=== PATIENT | male | born 1965 | race Caucasian/White ===

== ENCOUNTER → 2017-06-21 | Outpatient (CLI) | payer MEDICAID | END | disposition home or self-care (01) | LOC: RAD 11:36 | DX: M75.91 Shoulder lesion, unspecified, right shoulder (principal) ==

== ENCOUNTER → 2017-07-20 | Outpatient (CLI) | payer OTHER ==
[2017-07-20 09:15] LABS: BASO # 0.1 10*3/uL (0.0-0.1); BASO % 0.6 % (0.0-1.0); EOS # 0.2 10*3/uL (0.0-0.4); EOS % 1.8 % (1.0-4.0); HEMATOCRIT 49.9 % (42.0-52.0); HEMOGLOBIN 16.4 g/dl (14.0-18.0); LYMPH # 1.5 10*3/uL (1.3-4.4); LYMPH % 18.8 % (27.0-41.0); MEAN CELL VOLUME 98.2 fl (80.0-94.0); MEAN CORPUSCULAR HGB 32.3 pg (27.0-31.0); MEAN CORPUSCULAR HGB CONC 32.9 g/dl (33.0-37.0); MEAN PLATELET VOLUME 8.7 fl (9.6-12.3); MONO # 0.9 10*3/uL (0.1-1.0); NEUT # 5.5 10*3/uL (2.3-7.9); NEUT % 67.4 % (47.0-73.0); PLATELET COUNT AUTOMATED 199 10*3/uL (130-400); RED BLOOD COUNT 5.08 10*6/uL (4.50-5.90); RED CELL DISTRI WIDTH 14.6 % (0-14.5); WHITE BLOOD COUNT 8.1 10*3/uL (4.8-10.8)
[2017-07-20 09:34] LABS: ALBUMIN 3.6 gm/dl (3.1-4.5); BUN 30 mg/dl (7-24); CHLORIDE 106 mmol/L (98-107); CHOLESTEROL 250 mg/dL (<200); CREATININE 1.13 mg/dL (0.70-1.30); POTASSIUM 4.3 mmol/L (3.5-5.1); SGOT/AST 40 IU/L (3-35); SGPT/ALT 35 U/L (12-78); SODIUM 140 mmol/L (136-145); TOTAL PROTEIN 8.2 gm/dL (6.4-8.2); TRIGLYCERIDES 134 mg/dl (<150); VLDL CHOLESTEROL 27 mg/dL (6-40)
[2017-07-20 09:40] LABS: ALKALINE PHOSPHATASE 110 U/L (45-117); FREE T4 0.95 ng/dl (0.76-1.46); HDL CHOLESTEROL 59 mg/dl (40-60); LDL CHOLESTEROL 164 mg/dL (9-159)
[2017-07-20 10:49] LABS: VITAMIN D, 25-HYDROXY 11.1 ng/mL (30-100)
[2017-07-21 08:11] LABS: PROSTATE SPECIFIC AG FREE 0.15 ng/mL; PROSTATE SPECIFIC AG, SERUM 0.7 ng/mL (0.0-4.0)
== END | disposition home or self-care (01) ==
LOC: LAB 08:50
PROVIDERS: Internal Medicine
DX: Z12.5 Encounter for screening for malignant neoplasm of prostate (principal); Z11.59 Encounter for screening for other viral diseases; I10 Essential (primary) hypertension

== ENCOUNTER 2017-10-11 01:21 | Inpatient (IN) | payer SELFPAY ==
[~2017-10-11] VITALS: Ht 180.3 cm; Wt 87.6 kg
[2017-10-11 01:33] LABS: BASO # 0.1 10*3/uL (0.0-0.1); BASO % 0.8 % (0.0-1.0); EOS # 0.1 10*3/uL (0.0-0.4); HEMATOCRIT 52.8 % (42.0-52.0); HEMOGLOBIN 17.4 g/dl (14.0-18.0); LYMPH # 2.4 10*3/uL (1.3-4.4); LYMPH % 37.7 % (27.0-41.0); MEAN CELL VOLUME 96.2 fl (80.0-94.0); MEAN CORPUSCULAR HGB 31.7 pg (27.0-31.0); MEAN PLATELET VOLUME 8.5 fl (9.6-12.3); MONO # 0.8 10*3/uL (0.1-1.0); MONO % 12.1 % (3.0-9.0); NEUT % 47.1 % (47.0-73.0); PLATELET COUNT AUTOMATED 129 10*3/uL (130-400); RED BLOOD COUNT 5.49 10*6/uL (4.50-5.90); RED CELL DISTRI WIDTH 13.1 % (0-14.5); WHITE BLOOD COUNT 6.4 10*3/uL (4.8-10.8)
[2017-10-11 01:39] VITALS: BP 169/109
[2017-10-11 01:43] LABS: ACT PARTIAL THROMBO TIME 26.3 SECONDS (20.8-31.5)
[2017-10-11 01:51] LABS: ALBUMIN 3.7 gm/dl (3.1-4.5); ALKALINE PHOSPHATASE 126 U/L (45-117); BUN 6 mg/dl (7-24); CHLORIDE 100 mmol/L (98-107); POTASSIUM 3.6 mmol/L (3.5-5.1); SGOT/AST 48 IU/L (3-35); SGPT/ALT 53 U/L (12-78); SODIUM 140 mmol/L (136-145); TOTAL PROTEIN 8.4 gm/dL (6.4-8.2)
[2017-10-11 01:52] LABS: TROPONIN I < 0.015 ng/ml (<0.045)
[2017-10-11 02:50] VITALS: BP 148/95
[2017-10-11] MEDS ORDERED: LIPITOR10 MG PO ×2 (02:56→13:49)
[2017-10-11 04:41] LABS: BASO % 0.8 % (0.0-1.0); EOS # 0.1 10*3/uL (0.0-0.4); EOS % 2.7 % (1.0-4.0); HEMATOCRIT 46.8 % (42.0-52.0); HEMOGLOBIN 15.7 g/dl (14.0-18.0); LYMPH # 1.7 10*3/uL (1.3-4.4); LYMPH % 33.3 % (27.0-41.0); MEAN CELL VOLUME 95.5 fl (80.0-94.0); MEAN CORPUSCULAR HGB CONC 33.5 g/dl (33.0-37.0); MEAN PLATELET VOLUME 8.6 fl (9.6-12.3); MONO # 0.6 10*3/uL (0.1-1.0); NEUT # 2.7 10*3/uL (2.3-7.9); NEUT % 51.8 % (47.0-73.0); PLATELET COUNT AUTOMATED 120 10*3/uL (130-400); RED CELL DISTRI WIDTH 13.1 % (0-14.5); WHITE BLOOD COUNT 5.2 10*3/uL (4.8-10.8)
[2017-10-11 04:58] LABS: ALBUMIN 3.1 gm/dl (3.1-4.5); ALKALINE PHOSPHATASE 102 U/L (45-117); BUN 6 mg/dl (7-24); CHLORIDE 102 mmol/L (98-107); CHOLESTEROL 201 mg/dL (<200); CREATININE 0.95 mg/dL (0.70-1.30); HDL CHOLESTEROL 49 mg/dl (40-60); LDL CHOLESTEROL 89 mg/dL (9-159); PHOSPHOROUS 3.8 mg/dL (2.5-4.9); POTASSIUM 3.6 mmol/L (3.5-5.1); SGOT/AST 39 IU/L (3-35); SGPT/ALT 44 U/L (12-78); SODIUM 142 mmol/L (136-145); TOTAL PROTEIN 7.2 gm/dL (6.4-8.2); TRIGLYCERIDES 316 mg/dl (<150); VLDL CHOLESTEROL 63 mg/dL (6-40)
[2017-10-11 08:00] VITALS: BP 133/73
[2017-10-11 12:00] VITALS: BP 147/73
[2017-10-11] MEDS ORDERED: VITAMIN D50000 UNIT PO (13:49)
[2017-10-11 16:00] VITALS: BP 158/81
== END 2017-10-11 16:43 | disposition home or self-care (01) | DRG 313 ==
LOC: ED 01:21 → EDHOLD 02:08 → 5E 02:13
PROVIDERS: Emergency Medicine Emergency Medical Services; Hospitalist
DX: R07.89 Other chest pain (principal); D69.6 Thrombocytopenia, unspecified; E44.1 Mild protein-calorie malnutrition; E78.2 Mixed hyperlipidemia; F10.929 Alcohol use, unspecified with intoxication, unspecified; F17.210 Nicotine dependence, cigarettes, uncomplicated; R77.8 Other specified abnormalities of plasma proteins; E55.9 Vitamin D deficiency, unspecified; Z71.6 Tobacco abuse counseling; Z68.26 Body mass index [BMI] 26.0-26.9, adult; Z79.899 Other long term (current) drug therapy; Z82.49 Family history of ischemic heart disease and other diseases of the circulatory system; Z82.3 Family history of stroke